=== PATIENT | female | born 1980 | race Caucasian/White ===

== ENCOUNTER 2018-03-30 07:47 | Emergency (ER) | payer OTHER, SELFPAY ==
[2018-03-30 08:00] VITALS: BP 126/97; PULSE 99; RESP 16; TEMP 37.2; O2SAT 100; BMI 31.5
--- NOTE | 2018-03-30 08:42 | ED.BACK ---
HPI - Back Pain/Injury General Chief Complaint: Back Pain/Injury Stated Complaint: back pain History of Present Illness HPI Narrative: HPI 37-year-old asthmatic [employer] presents for evaluation of gradual onset diffuse bilateral paraspinal lumbar spasming type muscle strain pain that began after lifting the patient. Patient reports that on the overnight shift preceding presentation she is hoping to transition the patient to a bed with the patient's legs buckled and she suddenly had increase amount of weight that she had a bear, she lifted heavily, afterwards she had a gradual onset worsening back pain. Remains ambulatory. Patient denies a history of recent trauma, fevers, chills, unexpected weight loss, decreased perineal sensation when toileting, difficulty urinating or incontinence, morning stiffness, IV drug use, recent invasive medical procedures, presyncope, abdominal pain, Marfan's disease, or dysuria. M/S/F/SocHx notable for: please see HPI; remainder reviewed with patient and in chart. ROS: Negative constitutional, eye, cardiovascular, pulmonary, GI, , MSK, skin, neurologic, psychiatric, endocrine unless noted in the HPI. Exam Gen: Pleasant, non-toxic appearing, resting comfortably. HEENT: NC, AT, PEERL, EOMI. Resp: CTAB Card: RRR GI: ND, non-tender to palpation, no palpable midline masses, no palpable midline pulsatility. : No CVA tenderness to percussion bilaterally. MSK: No visible deformities, strength and tone WNL. No lower thoracic or lumbar spinal TTP, step offs or deformities. Mild bilateral paraspinal lumbar TTP. Skin: Normal color with no visible lesions. Neuro: AO x 3, no facial asymmetry, vision and hearing WNL. Straight leg raise test - negative right, negative left. BLE distal sensation intact, 5/5 dorsiflexion / plantarflexion bilaterally. Psych: Mood and affect appropriate. MDM Previous chart, nursing note, and vitals reviewed. A: 37-year-old asthmatic [employer] presents for evaluation of gradual onset diffuse bilateral paraspinal lumbar spasming type muscle strain pain that began after lifting the patient. DDx: muscle strain, muscle spasm, sciatica, lumbar radiculopathy, cauda equina syndrome, spinal cord abscess, vertebral osteomyelitis, vertebral diskitis, fracture, seronegative spondyloarthropathy, abdominal aortic aneurysm. Evaluation: * Cauda equina - consider unlikely given normal perineal sensation, lack of incontinence or urinary retention. * Infection - abscess, vertebral osteomyelitis, and diskitis are unlikely as the patient is immunocompetent and is with an absence of infectious signs and risk factors on ROS, and a lack of point tenderness. * Fracture - doubt given the absence of spinal TTP and lack of prior trauma * Seronegative spondyloarthropathy - unlikely, no further evaluation currently indicated given the absence of morning stiffness and negative RA, psoriatic arthritis, and autoimmune disease history. * AAA or Dissection - given the lack of a palpable pulsatile abdominal mass, abdominal pain, presyncope, an abdominal aortic aneurysm as well as dissection is considered unlikely and further investigation is not currently indicated. CT abdomen / pelvis without evidence of AAA or dissection. * Spontaneous hematoma - given the patient's use of anticoagulation and/or antiplatelet agents, as well as today's presentation not repsenting a typical exacerbation of a long standing injury, a CT abdomen and pelvis with contrast was obtained, this was without evidence of hematoma, a spontaneous epidural hematoma was also considered, but given the lack of objective motor or sensory deficits, a MRI is not presently indicated, the need for prompt return to care should any neurological deficits occur was communicated verbally and in writing with the patient.[ * Consider a muscle strain to be the most likely cause of the patient's symptoms. Counseled patient regarding natural course of musculoskeletal back pain, given return to care instructions, and recommendation for primary care physician follow up. Discharged with instructions to use NSAIDs and follow up with her PCP. Impression: Back Pain. (please reference below for remainder of encounter information) Related Data Home Medications Medication Instructions Recorded Confirmed IBUPROFEN (#IBUPRIN) 200 mg PO PRN #0 05/21/11 Previous Rx's Medication Instructions Recorded FERROUS GLUCONATE (FE-40 (FERROUS 325 mg PO QDAY #30 11/28/11 GLUCONATE)) Allergies Allergy/AdvReac Type Severity Reaction Status Date / Time hydromorphone [HYDROMORPHONE] Allergy Unknown Unverified 12/18/17 12:12 diphenhydramine AdvReac Intermediate aggitation Unverified 12/18/17 12:12 [DIPHENHYDRAMINE] PFSH Surgical History Status post biopsy (03/24/14) Status post breast lumpectomy Family History Grandfather Heart disease Hypertension High cholesterol Lupus Grandmother Diabetes mellitus Heart disease Hypertension High cholesterol Stroke Grandfather Age: 98 Skin cancer Diabetes mellitus Heart disease Hypertension High cholesterol Grandmother Age: 93 Osteoporosis Dementia High cholesterol Heart disease Hypertension Mental health problem Alzheimer's dementia Social History Smoking Status: Current some day smoker Exam Initial Vital Signs Initial Vital Signs: Vital Signs Temperature 99.0 F 03/30/18 08:00 Pulse Rate 99 H 03/30/18 08:00 Respiratory Rate 16 03/30/18 08:00 Blood Pressure 126/97 H 03/30/18 08:00 Pulse Oximetry 100 03/30/18 08:00 Course Vital Signs - 8 hr 03/30/18 08:00 Temperature 99.0 F Pulse Rate 99 H Respiratory Rate 16 Blood Pressure 126/97 H Pulse Oximetry 100 Discharge Plan Departure Patient Disposition: Home, Self-Care Clinical Impression: Strain of lumbar region Activity Restrictions/Additional Instructions: You were in seen in the [facility] Emergency Department for evaluation of back pain. Please read and follow all of the instructions below. Please follow up with your primary care physician 2 days if you still have significant ongoing symptoms. If you have any new symptoms or if you are at all concerned about your health please return immediately to the emergency department. If you do not have a primary care physician, please contact [facility] [place], [facility] at [phone], [facility] at [phone], or [facility] at [phone] to arrange follow up care. If you have health insurance, please also contact your insurer for a list of accepting providers under your policy, you may contact these providers for further health care. Your care today was limited to identifying and treating emergent medical problems only. Many people have subtle differences in their test results that require follow up with their outpatient physician(s) to correctly determine if this represents a normal variation or concerning abnormality with respect to your specific health. The care given to you today was limited to identifying and treating emergent medical problems - you need to request a copy of all of your medical records from today's visit and follow up with your outpatient physician(s) to review both today's visit and your overall health. Back Pain You were evaluated today in the emergency department for your back pain. Your pain is believed to be caused by muscle stains and spasms. This type of pain can be very severe, but it is almost never serious. * You may take ibuprofen 600 mg every 8 hours as needed for pain. You may take acetaminophen 1000 mg every 8 hours in addition to the ibuprofen for further pain relief. Both of these medications provide very good reduction in pain with minimal side effects. Do not take this ibuprofen if you are or allergic to ibuprofen, Motrin, Aleve, or naproxen. Do not take acetaminophen if you are allergic to Tylenol or acetaminophen. If you have liver disease you may take up to 2000 mg of acetaminophen per day. * Call your primary care physician to schedule a follow up appointment. Many people have pain that lasts beyond the length of the medications prescribed in the emergency department. You may also benefit from physical therapy, lifestyle changes, and further evaluation. Please return to the emergency department if you develop any of the following: * Pain on your spine (on the bones) * Have numbness or weakness in your legs * Have problems with bowel or bladder control * Have decreased sensation in your groin or at your anus * Have unexplained weight loss * Have a fever or feel sick in other ways * If you have pain that is so severe that you cannot perform simple tasks * If you are otherwise concerned about your health Please follow up with your primary care physician if you still have pain after 4-5 days What causes low back pain? In most cases, doctors and nurses do not know what causes low back pain. Pain can happen if you strain a muscle or hurt a tendon or ligament. But if that is the cause of your pain, doctors and nurses have no way of knowing it for sure. Pain can also happen if you have: * Damaged, bulging, or torn discs * Arthritis affecting the joints of the spine * Bony growths on the vertebrae that crowd nearby nerves * A vertebra out of place * Narrowing in the spinal canal * A tumor or infection (but this is very rare) Should I get an imaging test, like an MRI? Most people do not need an imaging test. Most cases of back pain go away within 4 to 6 weeks or in even less time. Doctors and nurses usually do not order imaging tests before then unless there are signs of something unusual. * If your doctor or nurse does not order an imaging test, do not worry. He or she can still learn a lot about your pain just from looking you over and talking with you. Plus, treatment can start right away, even without an imaging test. * How can the doctor or nurse tell what is wrong just by talking to me? Your symptoms tell your doctor or nurse a lot about the cause of your pain. If your pain spreads down the back of one thigh, for instance, that could be a sign that one of the nerves that go to your leg is being pinched by a bulging or torn disc. If, on the other hand, your pain goes all the way down both legs, that could be a sign that you have bony growths on your spine. * What can I do to feel better? The best thing you can do is to stay as active as possible even if you are in pain. People with low back pain recover faster if they stay active. Walk as much as you can. If you stopped working because of your pain, try to get back to your normal routine soon. But do not overdo it. * When you start to feel better, ask your doctor or nurse about exercises that can help strengthen your back. These exercises can help you get better faster and might make it less likely that you will have pain again. How is back pain treated? A small number of people end up needing surgery to treat back pain. But most people do well with simpler treatments, such as: * Physical therapy to teach you special exercises and stretches * Injections of medicines that numb the back or reduce swelling * What can I do to keep from getting back pain again? Stay active, maintain a healthy body weight and learn exercises that help strengthen and stretch your back. Learn to lift using your legs instead of your back. And avoid sitting or standing in the same position for too long. You make take over the counter Acetaminophen (Tylenol) and Ibuprofen (Motrin or Aleve) as directed below for relief of pain. * Take 600 mg of ibuprofen (three 200 mg tablets) with a glass of water every 6-8 hours as needed for pain or fever. Do not take this ibuprofen if you are or allergic to ibuprofen, Motrin, Aleve, or naproxen. * Take 1,000 mg of acetaminophen (two 500 mg tablets) with a glass of water every 6-8 hours as needed for pain. Do not take acetaminophen if you are allergic to Tylenol or acetaminophen. If you have liver disease you may take up to 2000 mg of acetaminophen per day. * You can take these medications at the same time or on separate schedules. * Do not take for more than 10 days. * Do not take with alcohol or other acetaminophen containing medications. * This medication may cause a mildly upset stomach, if so take it with a small snack. Stop taking it if you have persistent abdominal pain, heartburn, or any stomach pain. Do not take this medication if you have known ulcers. * Please read the warnings at the end of this document regarding these medications. Ibuprofen (Brand Names: Motrin, Advil) * Take 600 mg with a glass of water every 6-8 hours as needed for pain or fever. * Do not take for more than 10 days. * This medication may cause a mildly upset stomach, if so take it with a small snack. Stop taking it if you have persistent abdominal pain, heartburn, or any stomach pain. Do not take this medication if you have known ulcers. * Do not take with Naproxen Sodium (brand name: Aleve) or other non-steroidal antiiflammatory medications that you may be prescribed (e.g. Diclofenac, Etodolac, Indomethicin) WARNING: This drug may infrequently cause serious (rarely fatal) bleeding from the stomach or intestines. Also, related drugs rarely have caused blood clots to form, resulting in heart attacks and strokes. This medication might also rarely cause similar problems. Talk to your doctor or pharmacist about the benefits and risks of treatment, as well as other possible medication choices. If you notice any of the following rare but very serious side effects, stop taking ibuprofen and seek immediate medical attention: black stools, persistent stomach/abdominal pain, vomit that looks like coffee grounds, chest pain, weakness on one side of the body, sudden vision changes, slurred speech. SIDE EFFECTS: Upset stomach, nausea, vomiting, heartburn, headache, diarrhea, constipation, drowsiness, and dizziness may occur. If any of these effects persist or worsen, notify your doctor or pharmacist promptly. If your doctor has directed you to use this medication, remember that he or she has judged that the benefit to you is greater than the risk of side effects. Many people using this medication do not have serious side effects. Tell your doctor immediately if any of these serious side effects occur: stomach pain, swelling of the hands or feet, sudden or unexplained weight gain, ringing in the ears (tinnitus). Tell your doctor immediately if any of these unlikely but serious side effects occur: vision changes, rapid or pounding heartbeat, easy bruising or bleeding, difficult/painful swallowing. Tell your doctor immediately if any of these highly unlikely but very serious side effects occur: change in amount of urine, severe headache, very stiff neck, mental/mood changes, persistent sore throat or fever. This drug may rarely cause serious (possibly fatal) liver disease. If you notice any of the following highly unlikely but very serious side effects, stop taking ibuprofen and consult your doctor or pharmacist immediately: yellowing eyes and skin, dark urine, unusual/extreme tiredness. An allergic reaction to this drug is unlikely, but seek immediate medical attention if it occurs. Symptoms of an allergic reaction include: rash, itching/swelling (especially of the face/tongue/throat), severe dizziness, trouble breathing. This is not a complete list of possible side effects. DRUG INTERACTIONS: Your healthcare professionals (e.g., doctor or pharmacist) may already be aware of any possible drug interactions and may be monitoring you for it. Do not start, stop or change the dosage of any medicine before checking with them first. This drug should not be used with the following medications because very serious interactions may occur: cidofovir, ketorolac. If you are currently using any of these medications listed above, tell your doctor or pharmacist before starting ibuprofen. Before using this medication, tell your doctor or pharmacist of all prescription and nonprescription/herbal products you may use, especially of: anti-platelet drugs (e.g., cilostazol, clopidogrel), oral bisphosphonates (e.g., alendronate), other medications for arthritis (e.g., aspirin, methotrexate), blood thinners (e.g., enoxaparin, heparin, warfarin), corticosteroids (e.g., prednisone), cyclosporine, desmopressin, high blood pressure drugs (including SAM inhibitors such as captopril, angiotensin II receptor antagonists such as losartan, and beta-blockers such as metoprolol), lithium, pemetrexed, water pills (diuretics such as furosemide, hydrochlorothiazide, triamterene). Check all prescription and nonprescription medicine labels carefully for other pain/fever drugs (NSAIDs such as aspirin, celecoxib, naproxen). These drugs are similar to ibuprofen, so taking one of these drugs while also taking ibuprofen may increase your risk of side effects. Consult your doctor or pharmacist for more details. However, if your doctor has prescribed low doses of aspirin to prevent heart attack or stroke (usually at dosages of 81-325 milligrams a day), you should continue to take the aspirin. Daily use of ibuprofen may decrease aspirin's ability to prevent heart attack/stroke. Talk to your doctor about using a different medication (e.g., acetaminophen) to treat pain/fever. If you must take ibuprofen, talk to your doctor about possibly taking immediate-release aspirin (not enteric-coated) while also taking the ibuprofen dose apart from your aspirin dose. Do not increase your daily dose of aspirin or change the way you take aspirin/other medications without your doctor's approval. This document does not contain all possible interactions. Therefore, before using this product, tell your doctor or pharmacist of all the products you use. Keep a list of all your medications with you, and share the list with your doctor and pharmacist. Acetaminophen (Tylenol) * Please take 1,000 mg every 6 hours as needed for pain. * Do no use with alcohol or other acetaminophen containing medications. SIDE EFFECTS: This drug usually has no side effects. If you do not have liver problems, the maximum dose of acetaminophen for adults is 4 grams per day (4000 milligrams). Taking more than the maximum daily amount may cause serious (possibly fatal) liver damage. Get medical help right away if you have any of the following symptoms of liver damage: persistent nausea/vomiting, extreme tiredness, stomach/abdominal pain, yellowing eyes/skin, dark urine. If you have liver problems, consult your doctor or pharmacist for a safe dosage of this medication. A very serious allergic reaction to this drug is rare. However, get medical help right away if you notice any symptoms of a serious allergic reaction, including: rash, itching/swelling (especially of the face/tongue/throat), severe dizziness, trouble breathing. This is not a complete list of possible side effects. If you notice other effects not listed above, contact your doctor or pharmacist. Prescriptions: No Action IBUPROFEN (#IBUPRIN) 200 mg PO PRN Qty: 0 RF: 0 FERROUS GLUCONATE (FE-40 (FERROUS GLUCONATE)) 325 mg PO QDAY Qty: 30 RF: 5
== END 2018-03-30 08:47 | disposition home or self-care (01) ==
PROVIDERS: Emergency Provider Emergency Medicine
DX: S39.012A Strain of muscle, fascia and tendon of lower back, initial encounter (principal); T73.3XXA Exhaustion due to excessive exertion, initial encounter; Y99.0 Civilian activity done for income or pay
CPT/HCPCS: 99282

== ENCOUNTER → 2018-04-10 08:03 | Outpatient (CLI) | payer OTHER, SELFPAY ==
[2018-04-10 09:50] LABS: Add Manual Diff / Slide Review NO; Basophils Percent Auto 0.9 % (0-2); Eosinophils Percent Auto 1.5 % (2-4); Hematocrit 32.3 % (36-46); Hemoglobin 10.3 g/dL (12.0-16.0); Lymphocytes Percent Auto 24.9 % (25-40); Mean Corpuscular HGB Conc 31.9 % (30-36); Mean Corpuscular Hemoglobin 23.1 PG (26-34); Mean Corpuscular Volume 72.5 fL (80-100); Monocytes Percent Auto 9.4 % (3-14); Neutrophils Absolute Auto 4000 /uL (3000-5900); Neutrophils Percent Auto 63.3 % (50-75); Platelet Count 410 X10^3/uL (150-400); Red Blood Cell Count 4.45 X10^6/uL (4.0-5.2); Red Cell Distribution Width 17.2 % (11.6-14.8); White Blood Cell Count 6.4 X10^3/uL (4.5-11.0)
[2018-04-10 09:59] LABS: Reticulocyte Count, Percent 1.8 % (1.06-2.63)
[2018-04-10 10:38] LABS: HEMOLYSIS < 15 (0-50); Iron 29 ug/dL (37-170)
[2018-04-10 10:51] LABS: Percent Iron Saturation 7 % (15-50); Total Iron Binding Capacity 399 ug/dL (265-497); Transferrin 319 mg/dL (206-381)
[2018-04-10 11:01] LABS: Ferritin 6.1 ng/mL (6.27-137)
== END ==
PROVIDERS: Visit Provider Family Medicine
DX: D50.9 Iron deficiency anemia, unspecified (principal)
CPT/HCPCS: 36415; 82728; 83540; 83550; 85025; 85045

== ENCOUNTER → 2018-05-02 08:18 | Outpatient (CLI) | payer OTHER, SELFPAY ==
--- NOTE | 2018-05-02 08:19 | DI.US.S_ITS ---
PROCEDURE: US PELVIC COMPLETE INDICATIONS: HEAVY MENSES TECHNIQUE: Real-time scanning was performed of the pelvic organs, with image documentation. Additional endovaginal scanning was necessary due to incomplete visualization of the adnexal and endometrial structures by transabdominal scanning. COMPARISON: None. FINDINGS: Transabdominal scanning: Limited scanning through the kidneys shows no hydronephrosis. No pathologic free abdominal or pelvic fluid. Endovaginal scanning: Uterus: Uterus is normal in size at 6.1 x 6.3 x 9.8 cm. The endometrium is poorly visualized due to to overlying uterine fibroid through the fundus and mid body region, presumably submucosal, measuring up to 2.0 x 2.1 x 3.2 cm. Ovaries: The right ovary measures 1.3 x 2.5 x 2.9 cm and is relatively poorly visualized by posterior positioning. The left ovary could not be located despite both transabdominal and transvaginal scanning. IMPRESSION: The masslike structure seen at the uterine fundus/body portion of the endometrial canal measuring up to 2.0 x 2.1 x 3.2 cm is presumably a submucosal fibroid which disallows clear visualization of the endometrial lining. Please note that this is a statistical diagnosis and given the clinical history provided very close clinical followup is recommended to determine whether advanced imaging (contrast-enhanced MR imaging of the pelvis) is warranted. An endometrial malignancy conceivably could produce this appearance. Dictated by: Seth Foss M.D. on 05/02/2018 at 10:13 Approved by: Seth Foss M.D. on 05/02/2018 at 10:16
== END ==
PROVIDERS: Visit Provider Family Medicine
DX: N92.0 Excessive and frequent menstruation with regular cycle (principal); D25.9 Leiomyoma of uterus, unspecified
CPT/HCPCS: 76830; 76856

== ENCOUNTER → 2018-05-29 10:00 | Oncology outpatient (ONC) | payer OTHER, SELFPAY ==
[2018-05-08] MEDS: IRON SUCROSE 200 MG in SODIUM CHLORIDE 0.9% 100 ML 220 ML IV (10:21)
[2018-05-08 10:25] VITALS: BP 125/84; PULSE 98; RESP 20; TEMP 36.9; O2SAT 97
[2018-05-15] MEDS: IRON SUCROSE 200 MG in SODIUM CHLORIDE 0.9% 100 ML 220 ML IV (10:51)
[2018-05-15 11:01] VITALS: BP 117/74; PULSE 88; RESP 16; TEMP 37; O2SAT 98
[2018-05-22 10:35] VITALS: BP 111/74; PULSE 83; RESP 18; TEMP 37; O2SAT 98
[2018-05-22] MEDS: IRON SUCROSE 200 MG in SODIUM CHLORIDE 0.9% 100 ML 220 ML IV (10:48)
[2018-05-22 11:22] LABS: Add Manual Diff / Slide Review NO; Basophils Percent Auto 1.6 % (0-2); Eosinophils Percent Auto 2.4 % (2-4); Hematocrit 30.2 % (36-46); Hemoglobin 9.9 g/dL (12.0-16.0); Mean Corpuscular HGB Conc 32.7 % (30-36); Mean Corpuscular Hemoglobin 23.7 PG (26-34); Mean Corpuscular Volume 72.6 fL (80-100); Monocytes Percent Auto 6.4 % (3-14); Neutrophils Absolute Auto 5100 /uL (3000-5900); Neutrophils Percent Auto 66.6 % (50-75); Platelet Count 346 X10^3/uL (150-400); Red Blood Cell Count 4.16 X10^6/uL (4.0-5.2); Red Cell Distribution Width 20.4 % (11.6-14.8); White Blood Cell Count 7.6 X10^3/uL (4.5-11.0)
[2018-05-22 14:08] LABS: RBC Morphology Normal Morphology
[2018-05-26 18:22] LABS: Clotting factor VIII 122 % normal (50-180); Thromboplastin Time 26 sec (22-34); Von Willibrand Factor Antigen 126 % (50-217)
[2018-05-29 10:30] VITALS: BP 115/76; PULSE 65; RESP 16; TEMP 36.7
[2018-05-29] MEDS: IRON SUCROSE 200 MG in SODIUM CHLORIDE 0.9% 100 ML 220 ML IV (10:48)
== END ==
PROVIDERS: Visit Provider Family Medicine
DX: D50.0 Iron deficiency anemia secondary to blood loss (chronic) (principal)
CPT/HCPCS: 85025; 85240; 85245; 85246; 85730; 96365; J1756

== ENCOUNTER → 2018-07-01 14:00 | Outpatient (CLI) | payer OTHER, SELFPAY | PROVIDERS: PCP Family Medicine | DX: Z23 Encounter for immunization (principal) | CPT/HCPCS: 90471; 90686 ==

== ENCOUNTER → 2018-07-04 08:49 | Outpatient (CLI) | payer OTHER, SELFPAY ==
[2018-07-04 10:13] LABS: Hematocrit 34.2 % (36-46); Hemoglobin 11.2 g/dL (12.0-16.0)
== END ==
PROVIDERS: PCP Family Medicine
DX: D50.0 Iron deficiency anemia secondary to blood loss (chronic) (principal)
CPT/HCPCS: 36415; 85014; 85018

== ENCOUNTER → 2018-08-11 10:59 | Outpatient (CLI) | payer OTHER, SELFPAY ==
[2018-08-11 11:31] LABS: Add Manual Diff / Slide Review NO; Basophils Percent Auto 0.8 % (0-2); Eosinophils Percent Auto 2.8 % (2-4); Hematocrit 36.3 % (36-46); Hemoglobin 11.8 g/dL (12.0-16.0); Lymphocytes Percent Auto 22.6 % (25-40); Mean Corpuscular HGB Conc 32.5 % (30-36); Mean Corpuscular Hemoglobin 24.5 PG (26-34); Mean Corpuscular Volume 75.4 fL (80-100); Monocytes Percent Auto 5.9 % (3-14); Neutrophils Absolute Auto 4700 /uL (3000-5900); Neutrophils Percent Auto 67.9 % (50-75); Platelet Count 363 X10^3/uL (150-400); Red Blood Cell Count 4.82 X10^6/uL (4.0-5.2); Red Cell Distribution Width 16.7 % (11.6-14.8); White Blood Cell Count 6.9 X10^3/uL (4.5-11.0)
[2018-08-11 11:46] LABS: Iron 34 ug/dL (37-170)
[2018-08-11 11:48] LABS: Cholesterol 157 mg/dL (140-199); HDL Cholesterol 37 mg/dL (40-60); LDL Cholesterol Calculated 87 mg/dL (<100); Triglycerides 164 mg/dL (35-150)
[2018-08-11 11:57] LABS: Percent Iron Saturation 9 % (15-50); Total Iron Binding Capacity 366 ug/dL (265-497); Transferrin 320 mg/dL (206-381)
[2018-08-11 12:07] LABS: Free T3, Triiodothyronine Free 3.25 pg/mL (2.77-5.27); Free T4, Direct Thyroxine 0.84 ng/dL (0.78-2.19); HEMOLYSIS < 15 (0-50)
[2018-08-11 12:21] LABS: Thyroid Stimulating Hormone 1.58 uIU/mL (0.47-4.68)
== END ==
PROVIDERS: PCP Family Medicine; Visit Provider Family Medicine
DX: D50.0 Iron deficiency anemia secondary to blood loss (chronic) (principal); R68.89 Other general symptoms and signs
CPT/HCPCS: 36415; 80061; 83540; 83550; 84439; 84443; 84481; 85025

== ENCOUNTER 2018-08-29 13:38 | Day surgery (SDC) | payer OTHER, SELFPAY ==
[2018-08-25 10:53] VITALS: BMI 33.0
[2018-08-29] VITALS (8 sets, daily range): BP systolic 123–148; BP diastolic 61–98; PULSE 71–122; RESP 9–19; TEMP 36–36.4; O2SAT 94–100; BMI 33.0
--- NOTE | 2018-08-29 | PATH_ITS ---
[facility] Accession Number: [id number] . 01 Material submitted: . ENDOMETRIAL CURRETTING AND POLYP . 02 Diagnosis: Endometrium, Biopsy: Secretory endometrium and a few fragments with occasional thick-walled vessels, most consistent with benign endometrial polyp. No evidence of neoplasia or hyperplasia. MRV/09/01/2018 . 02 Electronically signed: . Yaz Wang MD, Pathologist NPI- [id number] . 01 Gross description: . ENDOMETRIAL CURRETTING AND POLYP: Received in formalin are minute fragments of mucoid and hemorrhagic material measuring 4.5 x 2.5 x 0.5 cm in aggregate. Submitted in toto in 2 cassettes. /CKI /CKI . 02 Pathologist provided ICD-10: N92.0 . 02 CPT . 940932 Performed at: 01 [facility] [address] [id number] MD Obie Coppola MD Phone: [phone] Performed at: 02 [facility] [address] [address] [place], [place] [id number] MD Yaz Wang MD Phone: [phone]
[2018-08-29] MEDS: LACTATED RINGERS 1,000 ML 42 ML IV (14:13)
--- NOTE | 2018-08-29 14:21 | PM.PREOP ---
Pre-operative Note Interval Note Pre-op Check: Yes History & Physical Reviewed by Physician, Yes Exam Performed and Yes History & Physical exam performed today by Physician Changes: No
--- NOTE | 2018-08-29 14:50 | SUR.OPER ---
Lithotomy on padded OR bed, head on pillow, arms secured on padded arm boards at <90 degrees abduction. Legs secured in padded yellow fins stirrups.
--- NOTE | 2018-08-29 15:34 | PM.GYNOP.1 ---
Operative Date/Time/Diagnoses Date of procedure: 08/29/18 Time of procedure: 15:34 Pre-op diagnosis: Menorrhagia probable submucous fibroid Post-op diagnosis: same Procedure: Procedures Operation Date: 08/29/18 14:30 Actual Procedures Side Surgeon p Hysteroscopy D&C, myomectomy Tayo Ghotra MD Indications: Menorrhagia Endometrial mass Surgeon: Tayo Ghotra Anesthesia Type: General Operative Notes Findings: Submucous myoma Closure Type: not applicable Specimen(s): endometrial curettings Estimated blood loss (mL): 75 Blood products transfused: none Procedure in detail: The patient was placed supine upon the operating table and anesthetized. She was then placed in the dorsal lithotomy position examined under anesthesia. The patient had a virginal introitus and narrow vagina which made visualization difficult. There were no obvious masses. Patient was draped. Usual fashion. A speculum was needed to be set in place with poor visualization. The cervix was grasped with a toothed tenaculum. Uterine cavity was sounded 8 cm. Uterine cervix was dilated to a Hegar is a 11. The cannot be dilated past. The dilator was removed and hysteroscope placed. Initial visualization was difficult because of low pressure flow which turned out to be due to a kinking and the connecting tubing which was then corrected. Good visualization one could see a submucous myoma. Curettage revealed scant amount of tissue. Attempts at removal of the of myoma were fraught with limited mobility inside a very tight vagina. The ring forceps were used but could number grasped the leiomyoma. This was not a shave of all leiomyoma so electrocautery was not used. Further dilatation was not possible and the procedure was discontinued at this juncture. Complications: none Post-operative Condition: stable Disposition: PACU Plan for aftercare: Office Dr. Mendez two weeks
[2018-08-29] MEDS: fentaNYL 100 MCG/2 ML INJ 25 MCG IV ×2 (15:58→16:04)
[2018-08-29] MEDS: OXYCODONE/ACETAMINOPHEN 5/325 TABLET 1 TAB PO (16:15)
--- NOTE | 2018-08-29 16:51 | SUR.PHASEII ---
INSTRUCTIONS REVIEWED WITH PT AND HER SISTER WITH VERBALIZED UNDERSTANDING. PT TOLERATING PO FLUIDS AND CRACKERS,
== END 2018-08-29 16:55 | disposition home or self-care (01) ==
PROVIDERS: PCP Family Medicine
PROC: 0UDB8ZZ Extraction of Endometrium, Via Natural or Artificial Opening Endoscopic (ICD-10-PCS; CPT 58558; principal; 2018-08-29 14:30)
DX: D25.0 Submucous leiomyoma of uterus (principal); G47.33 Obstructive sleep apnea (adult) (pediatric)
CPT/HCPCS: 58558; J1100; J2250; J2405; J2704; J3010

== ENCOUNTER 2018-09-30 14:26 | Observation (INO) | payer OTHER, SELFPAY ==
[2018-09-22 13:28] VITALS: BMI 32.8
[2018-09-29] VITALS (16 sets, daily range): BP systolic 116–154; BP diastolic 66–87; PULSE 79–115; RESP 10–20; TEMP 36.3–36.8; O2SAT 95–100; BMI 32.8
--- NOTE | 2018-09-29 | PATH_ITS ---
[facility] Accession Number: [id number] . 01 Material submitted: . UTERUS . 02 Diagnosis: Uterus, Laparoscopic supracervical Hysterectomy (Morcellated Specimen Weighing 146 grams): Secretory endometrium; negative for glandular hyperplasia, cytologic atypia and malignancy. Myometrium with an intramural leiomyoma (1.5 cm in greatest dimension). MRV/10/01/2018 . 02 Electronically signed: . Анна Crockett MD, Pathologist NPI- [id number] . 01 Gross description: . Received in formalin, labeled uterus, is a morcellated uterus (146 grams, 12.5 x 11.5 x 4.7 cm in aggregate). The cervix, ovaries, and fallopian tubes are absent. The tissue cannot be oriented, and the endometrium and myometrium cannot be grossly measured. The parenchyma is ramos and contains a solid firm white whorled well-circumscribed homogenous nodule (1.5 x 1.4 x 1.4 cm). The serosa is pale ramos smooth and shiny. Glue Sprayer tissue is submitted in cassettes A1-A4. ([id number]) /[facility] . 02 Pathologist provided ICD-10: N85.00 . 02 CPT . 452962 Performed at: 01 [facility] [address], [place], [place] [id number] MD Obie Coppola MD Phone: [phone] Performed at: 02 [facility] [address] [place], [place] [id number] MD Yaz Wang MD Phone: [phone]
[2018-09-29] MEDS: LACTATED RINGERS 1,000 ML 42 ML IV (08:12)
--- NOTE | 2018-09-29 08:57 | PM.PREOP ---
Pre-operative Note Interval Note History & Physical reviewed/Exam performed by Physician: Yes Changes to H&P: No H&P completed within 30 days and has changed as indicated here:: See outpatient note from 09/10/2018
[2018-09-29] MEDS: CEFAZOLIN 2 GM/100 ML FROZ.PIGGY IV (09:22)
--- NOTE | 2018-09-29 09:58 | SUR.OPER ---
Lithotomy on padded OR bed. Haring Pad Positioner under torso. Head on pillow, arms padded and tucked at sides. Legs secured in padded yellow fins stirrups.
[2018-09-29] MEDS: BUPIVACAINE 0.5% W/ EPI (PF) VIAL 30 ML INJ (10:09)
--- NOTE | 2018-09-29 11:01 | P.OP_ITS ---
Operative Date/Time/Diagnoses Date of procedure: 09/29/18 Time of procedure: 10:57 Pre-op diagnosis: Menorrhagia Post-op diagnosis: same Procedure & Clinicians Procedure: Laparoscopic supracervical hysterectomy Same procedure as scheduled: Yes Indications: Menorrhagia Surgeon: Doreen Urbina Build And Release Manager: Tayo Marion Yes if Unassisted: No Anesthesia Type: General Operative Notes Findings: Mildly enlarged uterus with normal fallopian tubes and ovaries Closure Type: primary Specimen(s): other (Uterus above the level of the bladder) Applied: catheter Estimated Blood Loss (mL): 50 Blood products transfused: none Procedure in detail: Patient is brought to the operating room where she underwent general anesthesia and placed in [facility]. She was prepped and draped in the usual sterile fashion. A check list was reviewed with the staff in the room prior to beginning of the case. Patient had pulsatile stockings in place and functional. 2 g of Ancef were in prior to beginning of the case.. A Tamayo catheter was placed. A single-tooth tenaculum was placed on the anterior lip of the cervix and the cervix dilated to a #6 Hegar dilator. The uterine manipulator was placed through the cervix into the uterus with the balloon inflated with 3 mL of air. The area of the umbilical incision and the 5 mm right and left lower quadrant incisions were injected with Marcaine. An incision was made with scalpel. The verries needle was placed into the abdomen and confirmed in the appropriate place with withdrawal on a syringe and then free flow of fluid down through the needle. The abdomen was insufflated with CO2. The needle was removed and a 5 mm trocar placed without difficulty. There did not appear to be any damage is placement of the trocar. The right and left lower quadrant incisions were made with the scalpel and the trochars placed without damage to internal structures. The PK forceps were used to cauterize the round ligaments. Sequential bites were taken down the broad ligaments. The uterine arteries were cauterized. An incision was made above the level bladder pushing the bladder away from the cervix. The ROJELIO loop was placed around the uterus and the uterus was amputated above the level of the bladder. Bleeding was controlled with the PK forceps. The PK forceps were used to cauterize in the endocervical canal. A supracervical incision was made and an 11 mm port placed. A 15 mm Endo Catch bag was placed in the abdomen. The uterus, tubes and ovaries were placed in the bag and brought up through the suprapubic port site. The Diaz O was placed. The uterus was hand morselized. The abdomen was reinsufflated and adequate hemostasis was noted. The trochars were removed and the CO2 allowed escape from the abdomen. The fascia layer of the suprapubic site was repaired with 0 Polysorb suture. Skin was closed with 4-0 Monocryl suture at the suprapubic site and the other 3 sites. The patient went to recovery room in good condition. Counts of instruments and sponges were correct. Complications: none Condition: stable Disposition: Acute Care Plan for aftercare: Routine post laparoscopic supracervical hysterectomy
[2018-09-29] MEDS: LACTATED RINGERS 1,000 ML 100 ML IV ×2 (11:16→12:19)
[2018-09-29] MEDS: fentaNYL 100 MCG/2 ML INJ 50 MCG IV ×2 (11:20→11:29)
[2018-09-29] MEDS: LORazepam 2 MG/ML SYRINGE 0.5 MG IV (11:23)
[2018-09-29] MEDS: ONDANSETRON 4 MG/2 ML INJ IV ×2 (12:42→19:08)
[2018-09-29] MEDS: KETOROLAC 30 MG/ML VIAL IV ×2 (12:43→22:40)
[2018-09-29] MEDS: MORPHINE 2 MG/ML INJ IV (13:37)
--- NOTE | 2018-09-29 16:07 | PC.NURSE ---
Post-op: Late entry Arrived to room 229 at 1320. Alert and oriented X3. 4 abd lap dressings dry/intact, all clean except for L lateral which has small spot sanguinous drainage. No vaginal bleeding noted. Medicated with PRN Zofran, Toradol and Morphine. Had one episode of emesis (300 ml) shortly after arrival, none since then and no further complaints of nausea. BT+, hypoactive. Tamayo to gravity, urine cloudy and yellow. Lungs CTA, sats on RA 99-100%. HARNESS TIER reported hearing a heart murmur, and I thought I heard one when I did my initial assessment. Patient was surprised when this was mentioned and denied Hx of murmur. This writer technical publications listened a second time about an hour later and heart rate sounded regular with no murmur. IV fluids per order, site in R hand WNL. Oriented to room and call light. She agrees not to get up without calling.
[2018-09-29] MEDS: OXYCODONE/ACETAMINOPHEN 5/325 TABLET 2 TAB PO (16:23)
[2018-09-29] MEDS: MORPHINE 4 MG/ML INJ IV (19:08)
[2018-09-29] MEDS: LORazepam 2 MG/ML SYRINGE 1 MG IV (19:46)
[2018-09-29] MEDS: DOCUSATE 250 MG CAPSULE PO (22:39)
--- NOTE | 2018-09-30 04:15 | PC.NURSE ---
Addendum entered by Sindi Zamudio R.N. 09/30/18 06:18: 1 TAB PERCOCET GIVEN AT APPROX 0450. AFTER 45 MIN PAIN PERSISTS WITH MILD NAUSEA; 2ND TAB PERCOCET GIVEN WITH ZOFRAN. PT REPORTS DISCOMFORT WHEN CROSSING LEGS. REPORTS SPLINTING ABD HELPS WITH PAIN. Original Note: ASSUMED CARE OF PT AT 2300. IV ACCESS LOST PRIOR TO THIS YARD DEMURRAGE CLERK'S SHIFT. DEVENDRA CASIANO RN OBTAINED NEW PIV IN L. WRIST. FLUSHES WELL. LAP SITES WITH BAND-AIDS C/D/I. REPORTS TORADOL HAS BEEN EFFECTIVE. NO FURTHER MEDICATIONS GIVEN THIS SHIFT. C-PAP SET-UP BY Steve. AMBULATING IN HALLS AND ROOM. VOIDING IN BATHROOM. CALLING APPROPRIATELY FOR NEEDS.
[2018-09-30 04:25] VITALS: BP 126/65; PULSE 95; RESP 16; TEMP 36.4; O2SAT 99
[2018-09-30] MEDS: OXYCODONE/ACETAMINOPHEN 5/325 TABLET 2 TAB PO ×4 (04:53→15:46)
[2018-09-30 06:00] LABS: Add Manual Diff / Slide Review NO; Basophils Absolute Auto 0 /uL (0-100); Basophils Percent Auto 0.2 % (0-2); Eosinophils Absolute Auto 0 /uL (0-450); Eosinophils Percent Auto 0.1 % (2-4); Hematocrit 32.3 % (36-46); Hemoglobin 10.6 g/dL (12.0-16.0); Lymphocytes Absolute Auto 1700 /uL (1100-4500); Lymphocytes Percent Auto 19.7 % (25-40); Mean Corpuscular HGB Conc 32.8 % (30-36); Mean Corpuscular Hemoglobin 23.6 PG (26-34); Mean Corpuscular Volume 72.1 fL (80-100); Monocytes Absolute Auto 700 /uL (0-900); Monocytes Percent Auto 7.5 % (3-14); Neutrophils Absolute Auto 6400 /uL (1500-7000); Neutrophils Percent Auto 72.5 % (50-75); Platelet Count 317 X10^3/uL (150-400); Red Blood Cell Count 4.48 X10^6/uL (4.0-5.2); Red Cell Distribution Width 16.3 % (11.6-14.8); White Blood Cell Count 8.8 X10^3/uL (4.5-11.0)
[2018-09-30] MEDS: ONDANSETRON 4 MG/2 ML INJ IV ×2 (06:05→15:45)
[2018-09-30 08:00] VITALS: BP 122/64; PULSE 78; RESP 18; TEMP 36.6; O2SAT 98
[2018-09-30 08:40] VITALS: O2SAT 99
[2018-09-30] MEDS: DOCUSATE 250 MG CAPSULE PO (09:41)
[2018-09-30] MEDS: LORazepam 2 MG/ML SYRINGE 1 MG IV (09:50)
[2018-09-30] MEDS: KETOROLAC 30 MG/ML VIAL IV (12:12)
[2018-09-30] MEDS: METOCLOPRAMIDE 10 MG/2 ML INJ IV (12:13)
--- NOTE | 2018-09-30 14:59 | PM.DS.1 ---
History of Present Illness Date Patient Seen: 09/30/18 Time Patient Seen: 15:00 Chief complaint: [id number] [facility] *OPB* Narrative: Patient underwent a laparoscopic supracervical hysterectomy on 09/29/2018 for menorrhagia. Discharge Providers Date of admission: 09/30/18 14:26 Primary care physician: Lata Menezes DO Consults: 09/22/18 13:38 Consult to Respiratory Therapy Evaluate & Treat Comment: LINSEY w/intermittant CPAP use Physician Instructions: Evaluate and treat 09/29/18 08:23 Consult to Respiratory Therapy Evaluate & Treat Comment: Physician Instructions: Evaluate and treat Discharge provider: Doreen Urbina MD Discharge Date: 09/30/18 Summary Discharge Diagnosis: Menorrhagia status post laparoscopic supracervical hysterectomy Hospital Course: After laparoscopic supracervical hysterectomy the patient had problems with emesis. She eventually began passing gas and was able to keep food and oral medications down. She is ambulatory without difficulty. Her pain is under control. Her vital signs remained stable. Status at Discharge Functional status at discharge: independent ambulation Overall status at discharge: patient is progressing back to baseline Time Spent with Patient Less than 30 minutes Exam Vital Signs (past 8 hours): - 09/30/18 08:00 09/30/18 08:40 Temperature 97.8 F Pulse Rate 78 Respiratory Rate 18 Blood Pressure 122/64 Pulse Oximetry 98 99 Oxygen Delivery Method Room Air Oxygen Flow Rate 0 Narrative Exam Narrative: Patient's abdomen is soft with minimal distention. There is mild tenderness. Her dressings are dry. Extremities without edema and nontender. Objective Labs Result Diagrams: 09/30/18 05:23 Labs: Laboratory Results - last 24 hr 09/30/18 05:23 WBC 8.8 RBC 4.48 Hgb 10.6 L Hct 32.3 L MCV 72.1 L MCH 23.6 L MCHC 32.8 RDW 16.3 H Plt Count 317 Neut % (Auto) 72.5 Lymph % (Auto) 19.7 L Evangeline % (Auto) 7.5 Eos % (Auto) 0.1 L Baso % (Auto) 0.2 Neut # (Auto) 6400 Lymph # (Auto) 1700 Evangeline # (Auto) 700 Eos # (Auto) 0 Baso # (Auto) 0 Discharge Plan Discharge Plan Patient Disposition: Home Discharge Med Rec/Prescriptions Prescriptions: New metoclopramide HCl 10 mg Tablet 10 mg PO Q4HR PRN (Reason: Nausea And Vomiting) Qty: 20 RF: 1 Continue IBUPROFEN (#IBUPRIN) 200 mg PO PRN Qty: 0 RF: 0 albuterol sulfate 90 mcg/actuation aerosol powdr breath activated 1 puff INHALATION Q4-6H PRN (Reason: Bronchospasm) RF: 0 alprazolam 0.25 mg tablet 0.25 mg PO .COMPLEX Qty: 2 RF: 0 oxycodone-acetaminophen 5-325 mg tablet 2 tab PO Q4-6H PRN (Reason: pain) Qty: 30 RF: 0 Discontinued ondansetron HCl 4 mg tablet 4 mg PO Q6-8H PRN (Reason: nausea and vomiting) Qty: 10 RF: 0 drospirenone-ethinyl estradiol 3-0.03 mg Tablet 1 tab PO DAILY RF: 0 ferrous gluconate 324 mg (38 mg iron) Tablet 324 mg PO DAILY RF: 0 No Action ResMed Airsense 10 Auto CPAP Qty: 1 RF: 0 Follow up/Referrals: Doreen Urbina MD [Physician] - 10/08/18 11:45 am Lata Menezes DO [Primary Care Provider] - Provider Discharge Instructions Diet: Diet as Tolerated Activity: No lifting over 20 lb for 1 week Skin/Wound/Dressing Care Report to your healthcare provider any signs of infection, such as:: chills, fever, increased pain and unusual redness Dressing: May remove Band-Aids. Can get Steri-Strips wet and pat dry. Remove in 1 week Discharge Data Primary Care Provider: Lata Menezes Attending Provider: Doreen Urbina Admit Date/Time: 09/30/18 14:26 Quality VTE Deep Vein Thrombosis/Pulmonary Embolism Present on Admission: No
--- NOTE | 2018-09-30 16:55 | PC.NURSE ---
1500- assumed care of pt. pt has pending discharge. medicated with pain meds per request/reports of pain. discussed discharge instructions with pt's father. IV removed. questions answered. taken down in wheel chair with ROLLWAY WORKER.
== END 2018-09-30 16:55 | disposition home or self-care (01) ==
LOC: OR 14:35
PROVIDERS: Admitting Provider Specialist; PCP Family Medicine; Visit Provider Specialist
PROC: 0UT94ZL Resection of Uterus, Supracervical, Percutaneous Endoscopic Approach (ICD-10-PCS; CPT 58541; principal; 2018-09-29 09:15)
DX: N85.00 Endometrial hyperplasia, unspecified (principal); N92.0 Excessive and frequent menstruation with regular cycle; D50.0 Iron deficiency anemia secondary to blood loss (chronic); F32.9 Major depressive disorder, single episode, unspecified; G47.30 Sleep apnea, unspecified; D25.1 Intramural leiomyoma of uterus
CPT/HCPCS: 58541; 36415; 85025; G0378; J0690; J1885; J2060; J2250; J2270; J2405; J2765; J3010

== ENCOUNTER → 2019-06-09 10:33 | Outpatient (CLI) | payer OTHER, SELFPAY ==
[2018-09-29 13:42] VITALS: BMI 32.8
== END ==
PROVIDERS: PCP Family Medicine
DX: Z23 Encounter for immunization (principal)
CPT/HCPCS: 90471; 90686

== ENCOUNTER → 2020-06-09 | Outpatient (CLI) | payer OTHER, SELFPAY ==
[2018-09-29 13:42] VITALS: BMI 32.8
== END ==
PROVIDERS: PCP Family Medicine; Referring Provider Internal Medicine; Visit Provider Internal Medicine
DX: Z23 Encounter for immunization (principal)
CPT/HCPCS: 90471; 90686

== ENCOUNTER → 2020-09-16 07:41 | Outpatient (CLI) | payer OTHER, SELFPAY ==
[2018-09-29 13:42] VITALS: BMI 32.8
[2020-09-16] MEDS: COVID-19 VACC(MODERNA-1)/PF 100 MCG/0.5 ML VIAL IM (07:51)
== END ==
PROVIDERS: PCP Family Medicine; Visit Provider Internal Medicine
DX: Z23 Encounter for immunization (principal)
CPT/HCPCS: 0011A; 91301

== ENCOUNTER → 2020-10-13 07:34 | Outpatient (CLI) | payer OTHER, SELFPAY ==
[2018-09-29 13:42] VITALS: BMI 32.8
[2020-10-13] MEDS: COVID-19 VACC #2, MRNA(MOD) 100 MCG/0.5 ML VIAL IM (07:38)
== END ==
PROVIDERS: PCP Family Medicine; Visit Provider Internal Medicine
DX: Z23 Encounter for immunization (principal)
CPT/HCPCS: 0012A; 91301

== ENCOUNTER → 2021-02-01 22:29 | Outpatient (CLI) | payer OTHER, SELFPAY ==
[2018-09-29 13:42] VITALS: BMI 32.8
[2021-02-01 23:31] LABS: Add Manual Diff / Slide Review NO; Basophils Absolute Auto 0 /uL (0-100); Basophils Percent Auto 0.6 % (0-2); Eosinophils Absolute Auto 100 /uL (0-450); Eosinophils Percent Auto 1.7 % (2-4); Hematocrit 42.3 % (36-46); Hemoglobin 14.4 g/dL (12.0-16.0); Lymphocytes Absolute Auto 2300 /uL (1100-4500); Lymphocytes Percent Auto 30.1 % (25-40); Mean Corpuscular Hemoglobin 29.3 PG (26-34); Mean Corpuscular Volume 86.1 fL (80-100); Monocytes Absolute Auto 500 /uL (0-900); Monocytes Percent Auto 6.9 % (3-14); Neutrophils Absolute Auto 4700 /uL (1500-7000); Neutrophils Percent Auto 60.7 % (50-75); Platelet Count 301 X10^3/uL (150-400); Red Blood Cell Count 4.91 X10^6/uL (4.0-5.2); Red Cell Distribution Width 14.3 % (11.6-14.8); White Blood Cell Count 7.7 X10^3/uL (4.5-11.0)
[2021-02-01 23:32] LABS: Alanine Aminotransferase 18 IU/L (<35); Albumin Globulin Ratio 1.4 (1.0-2.8); Alkaline Phosphatase 75 U/L (38-126); Aspartate Aminotransferase 26 IU/L (14-36); BUN Creatinine Ratio 27.9 (6-22); Bilirubin Total 0.8 mg/dL (0.2-1.3); Blood Urea Nitrogen 17 mg/dL (7-17); Calcium 9.4 mg/dL (8.4-10.2); Carbon Dioxide 29 mmol/L (22-32); Chloride 103 mmol/L (98-107); Cholesterol 143 mg/dL (140-199); Estimated Glomerular Filt Rate > 60.0 mL/min (>60); Globulin 2.9 g/dL (1.7-4.1); Glucose 97 mg/dL (70-100); HDL Cholesterol 35 mg/dL (40-60); HEMOLYSIS < 15 (0-50); LDL Cholesterol Calculated 85 mg/dL (<100); Sodium 138 mmol/L (137-145); Total Protein 6.9 g/dL (6.3-8.2); Triglycerides 115 mg/dL (35-150)
[2021-02-02 00:25] LABS: TSH w/ Reflex to FT4 2.47 uIU/mL (0.47-4.68)
== END ==
PROVIDERS: PCP Family Medicine; Referring Provider Family Medicine; Visit Provider Family Medicine
DX: Z00.00 Encounter for general adult medical examination without abnormal findings (principal); D50.0 Iron deficiency anemia secondary to blood loss (chronic)
CPT/HCPCS: 36415; 80053; 80061; 84443; 85025

== ENCOUNTER → 2021-03-13 09:08 | Outpatient (CLI) | payer OTHER, SELFPAY ==
[2018-09-29 13:42] VITALS: BMI 32.8
--- NOTE | 2021-03-13 09:09 | DI.RAD.S_ITS ---
PROCEDURE: XR FOOT RT MIN 3V INDICATIONS: RIGHT FOOT PAIN TECHNIQUE: 3 views of the foot were acquired. COMPARISON: None. FINDINGS: Bones: No fractures or dislocations. No suspicious bony lesions. Soft tissues: No tibiotalar joint effusion. Achilles tendon appears normal. IMPRESSION: Source of pain at the right foot is not found. Dictated by: Seth Foss M.D. on 03/13/2021 at 9:41 Approved by: Seth Foss M.D. on 03/13/2021 at 9:41
== END ==
PROVIDERS: PCP Family Medicine; Referring Provider Physician Assistant; Visit Provider Physician Assistant
DX: M79.671 Pain in right foot (principal)
CPT/HCPCS: 73630

== ENCOUNTER → 2021-07-06 13:33 | Outpatient (CLI) | payer OTHER, SELFPAY ==
[2018-09-29 13:42] VITALS: BMI 32.8
== END ==
PROVIDERS: PCP Family Medicine; Referring Provider Internal Medicine; Visit Provider Internal Medicine
DX: Z23 Encounter for immunization (principal)
CPT/HCPCS: 90471; 90686

== ENCOUNTER → 2021-08-15 07:13 | Outpatient (CLI) | payer OTHER, SELFPAY ==
[2018-09-29 13:42] VITALS: BMI 32.8
[2021-08-15 07:47] LABS: COVID19 -Nasal RAPID Negative (Negative)
== END ==
PROVIDERS: PCP Family Medicine; Referring Provider Nurse Practitioner Family; Visit Provider Nurse Practitioner Family
DX: Z20.822 Contact with and (suspected) exposure to COVID-19 (principal)
CPT/HCPCS: 87635

== ENCOUNTER 2021-09-11 01:26 | Emergency (ER) | payer OTHER, SELFPAY ==
[2018-09-29 13:42] VITALS: BMI 32.8
[2021-09-11 01:29] VITALS: BP 129/89; PULSE 132; RESP 22; TEMP 37.4; O2SAT 97; BMI 37.3
--- NOTE | 2021-09-11 01:33 | ED.FEVER ---
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 She was vaccinated for COVID in October. She has not had her booster yet. She has developed fever, vomiting, headache, nasal congestion and myalgias in the last 8 hours. No chest pain, shortness of breath. Patient has been nauseated had vomiting. Does have diarrhea intermittently but not persistently. No black or bloody stools. No urinary symptoms or dysuria urgency or frequency. She states that her myalgias red more in her hips. Has had a positive COVID exposures with close family recently. She does have a history of asthma and uses albuterol and takes amitriptyline as her only medications. She has had hysterectomy. No other major surgeries. No tobacco. She does not feel tight or wheezy or that she needs a albuterol treatment. Occasional alcohol. No illicit. Patient does note that she tends to be tachycardic typically 100-120 is her normal range. Related Data Home Medications Medication Instructions Recorded Confirmed IBUPROFEN (#IBUPRIN) 200 mg PO PRN #0 05/21/11 03/24/21 albuterol sulfate 90 mcg/actuation 1 puff INHALATION Q4-6H PRN 04/11/18 03/24/21 breath activated powder inhaler ResMed Airsense 10 Auto CPAP #1 ea 09/29/18 03/24/21 omeprazole 20 mg capsule,delayed 20 mg PO DAILY 03/24/21 03/24/21 release Previous Rx's Medication Instructions Recorded amitriptyline 25 mg tablet 50 mg PO HS #180 tab 11/28/12 benzonatate 100 mg capsule 100 mg PO BID PRN #20 cap 08/15/21 ondansetron 4 mg disintegrating 4 mg PO Q6H PRN #10 tab 09/11/21 tablet Allergies Allergy/AdvReac Type Severity Reaction Status Date / Time hydromorphone [HYDROMORPHONE] Allergy Severe itching Verified 03/13/21 08:59 diphenhydramine AdvReac Intermediate aggitation Verified 03/13/21 08:59 [DIPHENHYDRAMINE] amoxicillin AdvReac Verified 03/13/21 08:59 Review of Systems Review of Systems ROS Unobtainable: All systems reviewed & are unremarkable except as noted in HPI and below Patient History Medical History ADHD Anemia (~1997) Ankle pain (2012) Asthma (2013) Chicken pox (1985) Depression Deviated septum Foot pain (10/2014) Gallstones (~2012) Hayfever History of heavy periods (1993) Hyperlipidemia (2012) Iron deficiency anemia due to chronic blood loss Menorrhagia with irregular cycle Migraines (2011) Obesity (BMI 30-39.9) Obstructive sleep apnea Pancreatitis (2012) Severe ankle sprain (2012) Sleep apnea with use of continuous positive airway pressure (CPAP) Submucous uterine fibroid Submucous uterine fibroid Wears glasses (2012) Surgical History Anesthesia S/P laparoscopic supracervical hysterectomy (09/29/18) Status post biopsy (03/24/14) Status post breast lumpectomy (1996) Family History Grandfather Heart disease Hypertension High cholesterol Lupus Heart attack Grandmother Diabetes mellitus Heart disease Hypertension High cholesterol Stroke COPD (chronic obstructive pulmonary disease) Emphysema of lung Grandfather Age: 101 Skin cancer Diabetes mellitus Heart disease Hypertension High cholesterol Cancer of blood vessel History of heart artery stent Stroke Grandmother Age: 96 Osteoporosis Dementia High cholesterol Heart disease Hypertension Mental health problem Alzheimer's dementia Father Detached retina Partial blindness Forgetfulness Ache in joint Mother Partial deafness Asthma COPD (chronic obstructive pulmonary disease) Ache in joint Sister Foot fracture Wears glasses Social History household members: none Smoking Status: Current some day smoker alcohol intake: current Smoking Status: Current some day smoker alcohol intake frequency: a few times a week Substance Use Type: does not use Exam Narrative Exam Narrative: GEN: female, alert and oriented x 3, patient appears to be in mild distress. HEENT: Atraumatic, pupils are equal round reactive to light, extraocular movements are intact, nares are clear. HEART: Tachycardic but Regular rate and rhythm without murmur, clicks, rubs. No JVD. LUNGS:Lungs clear to auscultation, no wheezes, rales, crackles, chest moves symmetrically, no tachypnea accessory muscle use. Speaks in full sentences. ABD:bowel sounds normal, soft, non-tender, no guarding, rebound, rigidity, no masses noted, no hepatosplenomegaly :No CVA tenderness MSCL: Non-tender, no muscle atrophy, muscles strength 5/5 upper and lower extremities, full range of motion, normal gait NEURO:CN 2-12 intact, sensation normal SKIN: No rash, erythema or other skin changes. Initial Vital Signs Initial Vital Signs: Vital Signs Temperature 99.4 F 09/11/21 01:29 Pulse Rate 132 H 09/11/21 01:29 Respiratory Rate 22 09/11/21 01:29 Blood Pressure 129/89 09/11/21 01:29 Pulse Oximetry 97 09/11/21 01:29 Course Orders Ordered: ED Orders 09/11/21 01:35 COVID19 -Nasal swab/Pre-Proc Stat 09/11/21 01:55 Complete Blood Count AUTO DIFF Stat Comprehensive Metabolic Panel Stat Lipase Stat NT-proBNP (BNP-Adult 18+) Stat Procalcitonin Stat Troponin & CK Cardiac Panel Stat 09/11/21 01:59 XR chest 1V Stat 09/11/21 02:29 EKG-12 Lead Stat Discontinued Medications Sodium Chloride (Normal Saline 0.9%) 1,000 mls @ 1,000 mls/hr IV BOLUS ONE Stop: 09/11/21 02:57 Last Infusion: 09/11/21 04:01 Dose: 0 mls/hr Documented by: Admin: 09/11/21 02:09 Dose: 1,000 mls/hr Documented by: SHAWN Ketorolac Tromethamine (Ketorolac 30 Mg/Ml Vial) 30 mg IV NOW ONE Stop: 09/11/21 01:59 Last Admin: 09/11/21 02:10 Dose: 30 mg Documented by: SHAWN Ondansetron HCl (Ondansetron 4 Mg/2 Ml Inj) 4 mg IV NOW ONE Stop: 09/11/21 01:59 Last Admin: 09/11/21 02:10 Dose: 4 mg Documented by: SHAWN Ondansetron HCl (Ondansetron 4 Mg/2 Ml Inj) 4 mg IV NOW ONE Stop: 09/11/21 03:39 Ondansetron HCl (Ondansetron 4 Mg Odt Prepack) 1 bottle MISC SEEEARLINETR ONE Stop: 09/11/21 03:57 Last Admin: 09/11/21 04:01 Dose: 1 bottle Documented by: SHAWN Reevaluation(s) Reevaluation #1: Reviewed patient's, findings and vital signs today. Patient feeling somewhat better after Toradol and Zofran. She has not had any additional emesis. Patient is COVID positive. Does have some risk factors and offered order for monoclonal antibodies although we discussed this is and emergency authorize medication and may not be available. It is a 1 time outpatient infusion. Patient is amenable to possibly having monoclonal antibodies and order was sent. Vital Signs Vital signs: Vital Signs - 8 hr 09/11/21 01:29 09/11/21 02:21 09/11/21 02:30 Temperature 99.4 F Pulse Rate 132 H 127 H 126 H Respiratory Rate 22 Blood Pressure 129/89 Pulse Oximetry 97 95 93 09/11/21 03:00 Temperature Pulse Rate 114 H Respiratory Rate Blood Pressure Pulse Oximetry 93 MDM - Fever Lab Data Result diagrams: 09/11/21 01:55 09/11/21 01:55 Labs: Lab Results 09/11/21 09/11/21 09/11/21 Range/Units 01:35 01:55 01:55 WBC 4.6 (4.5-11.0) X10^3/uL RBC 4.66 (4.0-5.2) X10^6/uL Hgb 13.7 (12.0-16.0) g/dL Hct 39.5 (36-46) % MCV 84.7 (80-100) fL MCH 29.4 (26-34) PG MCHC 34.7 (30-36) % RDW 14.3 (11.6-14.8) % Plt Count 247 (150-400) X10^3/uL Neut % (Auto) 82.2 H (50-75) % Lymph % (Auto) 5.1 L (25-40) % Beckham % (Auto) 11.9 (3-14) % Eos % (Auto) 0.3 L (2-4) % Baso % (Auto) 0.5 (0-2) % Neut # (Auto) 3800 (4328-6670) /uL Lymph # (Auto) 200 L (0862-0581) /uL Beckham # (Auto) 500 (0-900) /uL Eos # (Auto) 0 (0-450) /uL Baso # (Auto) 0 (0-100) /uL Sodium (137-145) mmol/L Potassium (3.4-5.1) mmol/L Chloride (98-107) mmol/L Carbon Dioxide (22-32) mmol/L BUN (7-17) mg/dL Creatinine (0.52-1.04) mg/dL Estimated GFR (>60) mL/min BUN/Creatinine Ratio (6-22) Glucose (70-100) mg/dL Calcium (8.4-10.2) mg/dL Total Bilirubin (0.2-1.3) mg/dL AST (14-36) IU/L ALT (<35) IU/L Alkaline Phosphatase (38-126) U/L Total Creatine Kinase (30-135) U/L CK-MB (CK-2) CK-MB (CK-2) Rel Index Troponin I (0.01-0.034) ng/mL NT-Pro-B Natriuret Pep (<125) pg/mL Total Protein (6.3-8.2) g/dL Albumin (3.5-5.0) g/dL Globulin (1.7-4.1) g/dL Albumin/Globulin Ratio (1.0-2.8) Lipase (23-300) U/L Procalcitonin 0.08 (<0.5) ng/mL SARS-CoV-2 (PCR) Positive H (Negative) 09/11/21 09/11/21 Range/Units 01:55 01:55 WBC (4.5-11.0) X10^3/uL RBC (4.0-5.2) X10^6/uL Hgb (12.0-16.0) g/dL Hct (36-46) % MCV (80-100) fL MCH (26-34) PG MCHC (30-36) % RDW (11.6-14.8) % Plt Count (150-400) X10^3/uL Neut % (Auto) (50-75) % Lymph % (Auto) (25-40) % Beckham % (Auto) (3-14) % Eos % (Auto) (2-4) % Baso % (Auto) (0-2) % Neut # (Auto) (2915-0989) /uL Lymph # (Auto) (9787-2687) /uL Beckham # (Auto) (0-900) /uL Eos # (Auto) (0-450) /uL Baso # (Auto) (0-100) /uL Sodium 131 L (137-145) mmol/L Potassium 3.5 (3.4-5.1) mmol/L Chloride 99 (98-107) mmol/L Carbon Dioxide 26 (22-32) mmol/L BUN 10 (7-17) mg/dL Creatinine 0.66 (0.52-1.04) mg/dL Estimated GFR > 60.0 (>60) mL/min BUN/Creatinine Ratio 15.2 (6-22) Glucose 122 H (70-100) mg/dL Calcium 8.9 (8.4-10.2) mg/dL Total Bilirubin 1.5 H (0.2-1.3) mg/dL AST 29 (14-36) IU/L ALT 23 (<35) IU/L Alkaline Phosphatase 74 (38-126) U/L Total Creatine Kinase 61 (30-135) U/L CK-MB (CK-2) TNP CK-MB (CK-2) Rel Index TNP Troponin I < 0.012 (0.01-0.034) ng/mL NT-Pro-B Natriuret Pep 290 H (<125) pg/mL Total Protein 7.4 (6.3-8.2) g/dL Albumin 4.2 (3.5-5.0) g/dL Globulin 3.2 (1.7-4.1) g/dL Albumin/Globulin Ratio 1.3 (1.0-2.8) Lipase 77 (23-300) U/L Procalcitonin (<0.5) ng/mL SARS-CoV-2 (PCR) (Negative) Imaging Data Chest x-ray: Radiologist's Impression: Under ventilated lungs. No definite consolidation. ECG Data Attestation: I personally reviewed and interpreted this ECG as follows: Interpretation: Sinus tachycardia rate of 123 OR 146 QRS 84 and QTC 466. No acute ST changes. MDM Narrative Medical decision making narrative: This is a 40-year-old vaccinated female with history of asthma and elevated BMI who comes emergency further vomiting and fever and recent COVID exposure. Patient's O2 has been no lower than 93%. They are COVID positive. There tachycardic but states this is not atypical and improved here in the department. Patient has sinus tach on EKG chest x-ray does not show acute changes. Order for monoclonal antibodies was sent. Put for ibuprofen and Tylenol and Zofran for symptoms. Return precautions. We discussed getting a pulse oximeter which they will attempt to obtain to monitor at home. Discharge Plan Departure Patient Disposition: Home Clinical Impression: COVID-19 virus infection Instructions: DI for COVID-19 (Suspected or Confirmed ) Activity Restrictions/Additional Instructions: *You have been diagnosed with COVID infection. If you wish you may obtain a pulse oximeter for use at home to monitor. Please return to the ER if your pulse oximeter shows an O2 saturation less than 94%. You may take Tylenol up to a 1000 mg and/or ibuprofen up to 800 mg every 8 hours. Zofran 1 tablet every 6 hours as needed for nausea. An order form for monoclonal antibodies was faxed to [facility]. I do think he would be a good candidate. They may or may not have availability but should contact you. A copy of the order is included in her discharge paperwork. *What to do: * per recommendations from the CDC and the [facility] [place] [facility] * stay home except to get medical care. Restrict activities outside your home, except for getting medical care. Do not go to work, school, or public areas. Avoid using public transportation, ride sharing, or taxis. * separate yourself from other people in your home. * call ahead before visiting your doctor * Wear a face mask * Cover your coughs and sneezes * Clean your hands often * Avoid sharing household items * Clean all high-touch services every day * Monitor your symptoms and seek prompt medical attention if your illness is worsening, particularly with difficulty in breathing. Discussed continuing home isolation * for individuals with symptoms who are confirmed or suspected cases of COVID-19 and are directed to care for themselves at home, discontinue home isolation under the following conditions: 1. At least 72 hours have passed since recovery, defined as resolution of fever without the use of fever reducing medications, and improvement in respiratory symptoms (cough, shortness of breath) AND, 2. At least 7 days have passed since symptoms 1st appeared Prescriptions: New ondansetron 4 mg tablet,disintegrating 4 mg PO Q6H PRN (Reason: nausea and vomiting) Qty: 10 0RF No Action benzonatate 100 mg capsule 100 mg PO BID PRN (Reason: cough) Qty: 20 0RF IBUPROFEN (#IBUPRIN) 200 mg PO PRN Qty: 0 0RF amitriptyline 25 mg tablet 50 mg PO HS Qty: 180 1RF albuterol sulfate 90 mcg/actuation aerosol powdr breath activated 1 puff INHALATION Q4-6H PRN (Reason: Bronchospasm) 0RF omeprazole 20 mg capsule,delayed release(DR/EC) 20 mg PO DAILY 0RF (DME) ResMed Airsense 10 Auto CPAP Qty: 1 0RF Dose Instruction: As directed Label Comments: Pressure: 5-10 cmH2O DME: [facility] Rx Instructions: As directed Referrals: Lata Menezes DO [Primary Care Provider] -
[2021-09-11 01:58] LABS: COVID19 -Nasal RAPID POSITIVE (Negative)
--- NOTE | 2021-09-11 01:59 | DI.RAD.S_ITS ---
PROCEDURE: XR CHEST 1V INDICATIONS: + covid TECHNIQUE: One view of the chest was acquired. COMPARISON: None. FINDINGS: Surgical changes and devices: None. Lungs and pleura: No consolidation identified. Low lung volumes. No pleural effusions or pneumothorax. Mediastinum: Mediastinal contours appear normal. Heart size is normal. Bones and chest wall: No suspicious bony lesions. Overlying soft tissues appear unremarkable. IMPRESSION: No consolidation identified. Low lung volumes. When clinically feasible consider two-view chest radiograph. This report is concordant with the overnight preliminary interpretation. Dictated by: Trevor Busby M.D. on 09/11/2021 at 7:46 Approved by: Trevor Busby M.D. on 09/11/2021 at 7:47
[2021-09-11] MEDS: SODIUM CHLORIDE 0.9% 1,000 ML 1000 ML IV (02:09)
[2021-09-11] MEDS: ONDANSETRON 4 MG/2 ML INJ IV (02:10)
[2021-09-11] MEDS: KETOROLAC 30 MG/ML VIAL IV (02:10)
[2021-09-11 02:17] LABS: Add Manual Diff / Slide Review NO; Basophils Absolute Auto 0 /uL (0-100); Basophils Percent Auto 0.5 % (0-2); Eosinophils Absolute Auto 0 /uL (0-450); Eosinophils Percent Auto 0.3 % (2-4); Hematocrit 39.5 % (36-46); Hemoglobin 13.7 g/dL (12.0-16.0); Lymphocytes Absolute Auto 200 /uL (1100-4500); Lymphocytes Percent Auto 5.1 % (25-40); Mean Corpuscular HGB Conc 34.7 % (30-36); Mean Corpuscular Hemoglobin 29.4 PG (26-34); Mean Corpuscular Volume 84.7 fL (80-100); Monocytes Absolute Auto 500 /uL (0-900); Monocytes Percent Auto 11.9 % (3-14); Neutrophils Absolute Auto 3800 /uL (1500-7000); Neutrophils Percent Auto 82.2 % (50-75); Platelet Count 247 X10^3/uL (150-400); Red Blood Cell Count 4.66 X10^6/uL (4.0-5.2); Red Cell Distribution Width 14.3 % (11.6-14.8); White Blood Cell Count 4.6 X10^3/uL (4.5-11.0)
[2021-09-11 02:21] VITALS: PULSE 127; O2SAT 95
[2021-09-11 02:24] LABS: Alanine Aminotransferase 23 IU/L (<35); Albumin 4.2 g/dL (3.5-5.0); Albumin Globulin Ratio 1.3 (1.0-2.8); Alkaline Phosphatase 74 U/L (38-126); Aspartate Aminotransferase 29 IU/L (14-36); BUN Creatinine Ratio 15.2 (6-22); Bilirubin Total 1.5 mg/dL (0.2-1.3); Blood Urea Nitrogen 10 mg/dL (7-17); Calcium 8.9 mg/dL (8.4-10.2); Carbon Dioxide 26 mmol/L (22-32); Chloride 99 mmol/L (98-107); Creatine Kinase 61 U/L (30-135); Estimated Glomerular Filt Rate > 60.0 mL/min (>60); Globulin 3.2 g/dL (1.7-4.1); Glucose 122 mg/dL (70-100); HEMOLYSIS < 15 (0-50); Lipase 77 U/L (23-300); Potassium 3.5 mmol/L (3.4-5.1); Sodium 131 mmol/L (137-145); Total Protein 7.4 g/dL (6.3-8.2)
[2021-09-11 02:30] VITALS: PULSE 126; O2SAT 93
[2021-09-11 02:32] LABS: NT-proBNP (BNP-Adult 18+) 290 pg/mL (<125)
[2021-09-11 02:36] LABS: Troponin I < 0.012 ng/mL (0.01-0.034)
[2021-09-11 02:41] LABS: Procalcitonin 0.08 ng/mL (<0.5)
[2021-09-11 03:00] VITALS: PULSE 114; O2SAT 93
[2021-09-11] MEDS: ONDANSETRON 4 MG ODT PREPACK 1 BOTTLE MISC (04:01)
[2021-09-11 04:11] VITALS: BP 131/81; PULSE 108; RESP 20; TEMP 37.2; O2SAT 95
== END 2021-09-11 04:14 | disposition home or self-care (01) ==
PROVIDERS: Emergency Provider Emergency Medicine; PCP Family Medicine
DX: U07.1 COVID-19 (principal); R00.0 Tachycardia, unspecified
CPT/HCPCS: 36415; 71045; 80053; 82550; 83690; 83880; 84145; 84484; 85025; 87635; 93005; 96361; 96374; 96375; 99284; C9803; J1885; J2405

== ENCOUNTER → 2022-06-08 15:49 | Outpatient (CLI) | payer OTHER, SELFPAY ==
[2018-09-29 13:42] VITALS: BMI 32.8
== END ==
PROVIDERS: PCP Family Medicine; Referring Provider Internal Medicine; Visit Provider Internal Medicine
DX: Z23 Encounter for immunization (principal)
CPT/HCPCS: 90471; 90686

== ENCOUNTER → 2022-07-11 10:49 | Outpatient (CLI) | payer OTHER, SELFPAY ==
[2018-09-29 13:42] VITALS: BMI 32.8
--- NOTE | 2022-07-11 11:11 | DI.RAD.S_ITS ---
PROCEDURE: XR CHEST 2V INDICATIONS: Cough TECHNIQUE: 2 views of the chest were acquired. COMPARISON: [facility], CR, XR CHEST 1V, 09/11/2021, 2:11. FINDINGS: Surgical changes and devices: None. Lungs and pleura: Lungs are clear. No pleural effusions or pneumothorax. Mediastinum: Mediastinal contours are normal. Heart size is normal. Bones and chest wall: No suspicious bony abnormalities. Soft tissues appear unremarkable. IMPRESSION: No acute cardiopulmonary disease. Dictated by: Leonard Park M.D. on 07/11/2022 at 12:23 Approved by: Leonard Park M.D. on 07/11/2022 at 12:24
[2022-07-11 11:37] LABS: Influenza A - CEPHEID Flu A NEGATIVE (NEGATIVE); Influenza B - CEPHEID Flu B NEGATIVE (NEGATIVE); Respiratory Syncytial Virus Negative (Negative)
[2022-07-11 11:38] LABS: COVID-19 CEPHEID 4-PLEX PCR POSITIVE (Negative)
== END ==
PROVIDERS: PCP Family Medicine; Referring Provider Nurse Practitioner Family; Visit Provider Nurse Practitioner Family
DX: R05.9 Cough, unspecified (principal)
CPT/HCPCS: 0241U; 71046

== ENCOUNTER → 2022-11-20 12:15 | Outpatient (CLI) | payer OTHER, SELFPAY ==
[2018-09-29 13:42] VITALS: BMI 32.8
[2022-11-20 13:13] LABS: Influenza A - CEPHEID Flu A NEGATIVE (NEGATIVE); Influenza B - CEPHEID Flu B NEGATIVE (NEGATIVE); Respiratory Syncytial Virus Negative (Negative)
[2022-11-20 13:48] LABS: COVID-19 CEPHEID 4-PLEX PCR Negative (Negative)
== END ==
PROVIDERS: PCP Family Medicine; Visit Provider Student in an Organized Health Care Education/Training Program
DX: J02.9 Acute pharyngitis, unspecified (principal); R05.9 Cough, unspecified
CPT/HCPCS: 0241U; 87798

== ENCOUNTER → 2022-11-20 13:02 | Outpatient (CLI) | payer OTHER, SELFPAY ==
[2018-09-29 13:42] VITALS: BMI 32.8
--- NOTE | 2022-11-20 13:04 | DI.RAD.S_ITS ---
PROCEDURE: XR CHEST 2V INDICATIONS: 9 day cough, harsh, SHOB TECHNIQUE: 2 views of the chest were acquired. COMPARISON: [facility], CR, XR CHEST 2V, 07/11/2022, 11:17. FINDINGS: Surgical changes and devices: None. Lungs and pleura: Lungs are clear. No pleural effusions or pneumothorax. Mediastinum: Mediastinal contours are normal. Heart size is normal. Bones and chest wall: No suspicious bony abnormalities. Soft tissues appear unremarkable. IMPRESSION: No acute cardiopulmonary disease process. Dictated by: Terri Ortiz MD, PhD on 11/20/2022 at 13:15 Approved by: Terri Ortiz MD, PhD on 11/20/2022 at 13:15
== END ==
PROVIDERS: PCP Family Medicine; Referring Provider Student in an Organized Health Care Education/Training Program; Visit Provider Student in an Organized Health Care Education/Training Program
DX: R05.9 Cough, unspecified (principal); R07.81 Pleurodynia; J02.9 Acute pharyngitis, unspecified
CPT/HCPCS: 0241U; 71046; 87798

== ENCOUNTER 2023-04-30 19:27 | Emergency (ER) | payer OTHER, SELFPAY ==
[2018-09-29 13:42] VITALS: BMI 32.8
[2023-04-30] VITALS (11 sets, daily range): BP systolic 132–174; BP diastolic 87–106; PULSE 87–105; RESP 17–31; TEMP 37.2; O2SAT 96–99; BMI 35.9
--- NOTE | 2023-04-30 19:52 | ED.ANXIETY ---
HPI - Anxiety General Chief Complaint: Anxiety Stated Complaint: Panic attack ongoing 5h Time Seen by Provider: 04/30/23 19:47 Source: patient Mode of arrival: Ambulatory Limitations: no limitations History of Present Illness HPI narrative: 42-year-old female. Has a history of anxiety and depression. Found out today that she was not going to be able to renew the lease on her house. She states that she has been able to figure out other housing however throughout the day today has been feeling very anxious. She has taken all of her medications. She tried to do calming measures at home that have been unsuccessful. She states she has had panic attacks in the past but they have never lasted this long. She is never been to the emergency department before because of. She states she is feeling like her heart is beating fast. Also feel like that there is ?electricity? going through her body. Related Data Home Medications Medication Instructions Recorded Confirmed IBUPROFEN (#IBUPRIN) 200 mg PO PRN ##0 05/21/11 11/20/22 albuterol sulfate 90 mcg/actuation 1 puff inhalation Q4-6H PRN 04/11/18 11/20/22 breath activated powder inhaler Bronchospasm ResMed Airsense 10 Auto CPAP #1 ea 09/29/18 11/20/22 omeprazole 20 mg capsule,delayed 20 mg PO DAILY 03/24/21 11/20/22 release Previous Rx's Medication Instructions Recorded amitriptyline 25 mg tablet 50 mg PO HS #30 tabs 11/28/12 benzonatate 100 mg capsule 100 mg PO BID PRN cough #20 caps 08/15/21 ondansetron 4 mg disintegrating 4 mg PO Q6H PRN nausea and 09/11/21 tablet vomiting #10 tabs albuterol sulfate 90 mcg/actuation 2 puff inhalation Q6H PRN 07/11/22 aerosol inhaler shortness of breath or wheezing #6.7 grams benzonatate 100 mg capsule 100 mg PO BID PRN cough #20 caps 07/11/22 inhalational spacing device #1 ea 07/11/22 (Aerochamber MV spacer) benzonatate 100 mg capsule 100 mg PO TID PRN cough #30 caps 11/20/22 guaifenesin 100 mg/5 mL oral liquid 200 mg (10 mL) PO Q4H PRN cough 11/20/22 #500 mL Allergies Allergy/AdvReac Type Severity Reaction Status Date / Time hydromorphone [HYDROMORPHONE] Allergy Severe itching Verified 11/20/22 12:10 diphenhydramine AdvReac Intermediate aggitation Verified 11/20/22 12:10 [DIPHENHYDRAMINE] amoxicillin AdvReac Rash Verified 11/20/22 12:10 Review of Systems Constitutional Constitutional: Reports system reviewed and no additional complaints, except as documented Cardiovascular Cardiovascular: Reports system reviewed and no additional complaints, except as documented Neurologic Neurologic: Reports system reviewed and no additional complaints, except as documented Psychiatric Psychiatric: Reports system reviewed and no additional complaints, except as documented Patient History Medical History ADHD Anemia (~1997) Ankle pain (2012) Asthma (2013) Chicken pox (1985) Depression Deviated septum Foot pain (10/2014) Gallstones (~2012) Hayfever History of heavy periods (1993) Hyperlipidemia (2012) Iron deficiency anemia due to chronic blood loss Menorrhagia with irregular cycle Migraines (2011) Obesity (BMI 30-39.9) Obstructive sleep apnea Pancreatitis (2012) Severe ankle sprain (2012) Sleep apnea with use of continuous positive airway pressure (CPAP) Submucous uterine fibroid Submucous uterine fibroid Wears glasses (2012) Surgical History Anesthesia S/P laparoscopic supracervical hysterectomy (09/29/18) Status post biopsy (03/24/14) Status post breast lumpectomy (1996) Family History Grandfather Heart disease Hypertension High cholesterol Lupus Heart attack Grandmother Diabetes mellitus Heart disease Hypertension High cholesterol Stroke COPD (chronic obstructive pulmonary disease) Emphysema of lung Grandfather Age: 102 Skin cancer Diabetes mellitus Heart disease Hypertension High cholesterol Cancer of blood vessel History of heart artery stent Stroke Grandmother Age: 97 Osteoporosis Dementia High cholesterol Heart disease Hypertension Mental health problem Alzheimer's dementia Father Detached retina Partial blindness Forgetfulness Ache in joint Mother Partial deafness Asthma COPD (chronic obstructive pulmonary disease) Ache in joint Sister Foot fracture Wears glasses Social History household members: none Smoking Status: Former smoker alcohol intake: current Smoking Status: Former smoker alcohol intake frequency: a few times a week Substance Use Type: does not use Exam Initial Vital Signs Initial Vital Signs: Vital Signs Temperature 98.9 F 04/30/23 19:34 Pulse Rate 105 H 04/30/23 19:34 Respiratory Rate 19 04/30/23 19:34 Blood Pressure 165/97 H 04/30/23 19:34 Pulse Oximetry 98 04/30/23 19:34 Oxygen Delivery Method Room Air 04/30/23 19:34 HENMT Head: normal to inspection and normocephalic Resp Effort & Inspection: normal respiratory effort Cardio Rate: regular rate Skin General: no rashes or lesions noted Neuro General: patient alert, patient awake, patient oriented x3 and moves all extremities Extrem General: normal to inspection Psych Appearance: grossly normal and well kempt Mood: congruent mood Affect: normal affect Course Orders Ordered: ED Orders 04/30/23 19:40 EKG-12 Lead Stat Discontinued Medications Lorazepam (Lorazepam 0.5 Mg Tablet) 1 mg PO NOW ONE Stop: 04/30/23 19:53 Last Admin: 04/30/23 19:58 Dose: 1 mg Documented By: KWAME Ondansetron HCl (Ondansetron 4 Mg Odt) 4 mg SL NOW ONE Stop: 04/30/23 22:24 Last Admin: 04/30/23 22:27 Dose: 4 mg Documented By: TEZ Ondansetron HCl (Ondansetron 4 Mg Odt Prepack) 1 bottle MISC SEEINSTR ONE Stop: 04/30/23 23:01 Vital Signs Vital signs: Vital Signs - 8 hr 04/30/23 19:34 04/30/23 19:49 04/30/23 19:50 Temperature 98.9 F Pulse Rate 105 H 105 H 101 H Respiratory Rate 19 17 Blood Pressure 165/97 H Pulse Oximetry 98 98 99 Oxygen Delivery Method Room Air 04/30/23 19:50 04/30/23 20:00 04/30/23 20:00 Temperature Pulse Rate 99 H Respiratory Rate Blood Pressure 174/104 H 167/91 H Pulse Oximetry 97 Oxygen Delivery Method 04/30/23 20:30 04/30/23 20:30 04/30/23 21:00 Temperature Pulse Rate 93 H Respiratory Rate 18 Blood Pressure 153/100 H 161/100 H Pulse Oximetry 96 Oxygen Delivery Method 04/30/23 21:00 04/30/23 21:30 04/30/23 21:30 Temperature Pulse Rate 90 95 H Respiratory Rate 29 H 23 Blood Pressure 132/87 Pulse Oximetry 97 96 Oxygen Delivery Method 04/30/23 22:00 04/30/23 22:00 04/30/23 22:30 Temperature Pulse Rate 103 H Respiratory Rate 26 H Blood Pressure 143/103 H 151/93 H Pulse Oximetry 98 Oxygen Delivery Method 04/30/23 22:30 Temperature Pulse Rate 105 H Respiratory Rate 22 Blood Pressure Pulse Oximetry 96 Oxygen Delivery Method MDM - Anxiety ECG Data Attestation: I personally reviewed and interpreted this ECG as follows: Interpretation: Sinus rhythm Ventricular rate 99 Normal axis Normal QRS Normal QTC No ST T wave changes MDM Narrative Medical decision making narrative: Patient states that after the Ativan an observation she is feeling much better. She did have an episode of nausea and vomiting but this is most likely because of the Ativan. Apparently this has happened to her in the past after taking Ativan. Patient states she is feeling well enough to go home. Discharge Plan Departure Patient Disposition: Home Clinical Impression: Anxiety Instructions: DI for Anxiety -- Adult Activity Restrictions/Additional Instructions: Recommend that you take all of your medications as directed. Contact your primary doctor for follow-up. Return to the emergency department for new symptoms. Prescriptions: No Action benzonatate 100 mg capsule 100 mg PO BID PRN (Reason: cough) Qty: 20 0RF albuterol sulfate 90 mcg/actuation HFA aerosol inhaler 2 puff inhalation Q6H PRN (Reason: shortness of breath or wheezing) Qty: 6.7 0RF (DME) Aerochamber MV Spacer See Rx Instructions .ROUTE .MEDSUPPLY Qty: 1 0RF Rx Instructions: As directed benzonatate 100 mg capsule 100 mg PO BID PRN (Reason: cough) Qty: 20 0RF benzonatate 100 mg capsule 100 mg PO TID PRN (Reason: cough) Qty: 30 1RF guaifenesin 100 mg/5 mL liquid 200 mg PO Q4H PRN (Reason: cough) Qty: 500 0RF IBUPROFEN (#IBUPRIN) 200 mg PO PRN Qty: 0 amitriptyline 25 mg tablet 50 mg PO HS Qty: 30 1RF albuterol sulfate 90 mcg/actuation aerosol powdr breath activated 1 puff INHALATION Q4-6H PRN (Reason: Bronchospasm) omeprazole 20 mg capsule,delayed release(DR/EC) 20 mg PO DAILY ondansetron 4 mg tablet,disintegrating 4 mg PO Q6H PRN (Reason: nausea and vomiting) Qty: 10 0RF (DME) ResMed Airsense 10 Auto CPAP Qty: 1 Dose Instruction: As directed Patient Comments: Pressure: 5-10 cmH2O DME: [facility] Rx Instructions: As directed Referrals: Lata Menezes DO [Primary Care Provider] - Stand Alone Forms: Patient Portal/API
[2023-04-30] MEDS: LORazepam 0.5 MG TABLET 1 MG PO (19:58)
[2023-04-30] MEDS: ONDANSETRON 4 MG ODT SL (22:27)
[2023-04-30] MEDS: ONDANSETRON 4 MG ODT PREPACK 1 BOTTLE MISC (23:17)
== END 2023-04-30 23:23 | disposition home or self-care (01) ==
PROVIDERS: Emergency Provider Emergency Medicine; PCP Family Medicine
DX: F41.9 Anxiety disorder, unspecified (principal)
CPT/HCPCS: 93005; 99283

== ENCOUNTER → 2023-07-17 14:52 | Outpatient (CLI) | payer OTHER, SELFPAY ==
[2018-09-29 13:42] VITALS: BMI 32.8
== END ==
PROVIDERS: PCP Family Medicine; Referring Provider Family Medicine; Visit Provider Family Medicine
DX: Z23 Encounter for immunization (principal)
CPT/HCPCS: 90471; 90686

== ENCOUNTER → 2023-12-28 17:40 | Outpatient (CLI) | payer OTHER, SELFPAY ==
[2018-09-29 13:42] VITALS: BMI 32.8
[2023-12-28 18:19] LABS: Basophils Absolute Auto 100 /uL (0-100); Basophils Percent Auto 1.1 % (0-2); Eosinophils Absolute Auto 200 /uL (0-450); Eosinophils Percent Auto 2.7 % (2-4); Hematocrit 42.1 % (36-46); Hemoglobin 14.6 g/dL (12.0-16.0); Lymphocytes Absolute Auto 1800 /uL (1100-4500); Lymphocytes Percent Auto 23.7 % (25-40); Mean Corpuscular HGB Conc 34.7 % (30-36); Mean Corpuscular Volume 83.5 fL (80-100); Monocytes Absolute Auto 500 /uL (0-900); Monocytes Percent Auto 6.2 % (3-14); Neutrophils Absolute Auto 4900 /uL (1500-7000); Neutrophils Percent Auto 66.3 % (50-75); Platelet Count 285 X10^3/uL (150-400); Red Blood Cell Count 5.04 X10^6/uL (4.0-5.2); Red Cell Distribution Width 14.2 % (11.6-14.8); White Blood Cell Count 7.5 X10^3/uL (4.5-11.0)
[2023-12-28 18:47] LABS: Alanine Aminotransferase 18 IU/L (<35); Albumin 4.3 g/dL (3.5-5.0); Albumin Globulin Ratio 1.9 (1.0-2.8); Alkaline Phosphatase 85 U/L (38-126); Aspartate Aminotransferase 22 IU/L (14-36); BUN Creatinine Ratio 28.1 (6-22); Blood Urea Nitrogen 18 mg/dL (7-17); Calcium 9.1 mg/dL (8.4-10.2); Carbon Dioxide 28 mmol/L (22-32); Chloride 105 mmol/L (98-107); Estimated Glomerular Filt Rate > 60 mL/min (>60); Globulin 2.3 g/dL (1.7-4.1); Glucose 89 mg/dL (70-100); HEMOLYSIS < 15 (0-50); Potassium 4.2 mmol/L (3.4-5.1); Sodium 137 mmol/L (137-145); Total Protein 6.6 g/dL (6.3-8.2)
[2023-12-28 19:01] LABS: Add Manual Diff / Slide Review SLIDE REVIEW; RBC Morphology Normal Morphology
[2023-12-28 19:04] LABS: Vitamin D 25 Hydroxy (D3) 24.5 ng/mL (30.0-100.0)
[2023-12-28 19:35] LABS: Vitamin B12 353 pg/mL (239-931)
[2024-01-01 00:26] LABS: Folate, RBC 1080 ng/mL (>498); Hematocrit 42.3 % (34.0-46.6)
== END ==
LOC: LAB 17:43
PROVIDERS: PCP Family Medicine
DX: F32.A Depression, unspecified (principal)
CPT/HCPCS: 36415; 80053; 82306; 82607; 82747; 84443; 85014; 85025

== ENCOUNTER → 2024-06-27 08:00 | Outpatient (CLI) | payer OTHER, SELFPAY ==
[2018-09-29 13:42] VITALS: BMI 32.8
[2024-06-27 08:51] LABS: Add Manual Diff / Slide Review NO; Basophils Absolute Auto 100 /uL (0-100); Basophils Percent Auto 0.8 % (0-2); Eosinophils Absolute Auto 200 /uL (0-450); Eosinophils Percent Auto 2.3 % (2-4); Hematocrit 42.1 % (36-46); Hemoglobin 14.7 g/dL (12.0-16.0); Lymphocytes Absolute Auto 1900 /uL (1100-4500); Lymphocytes Percent Auto 25.7 % (25-40); Mean Corpuscular HGB Conc 34.9 % (30-36); Mean Corpuscular Hemoglobin 29.5 PG (26-34); Mean Corpuscular Volume 84.4 fL (80-100); Monocytes Absolute Auto 400 /uL (0-900); Monocytes Percent Auto 5.6 % (3-14); Neutrophils Absolute Auto 4700 /uL (1500-7000); Neutrophils Percent Auto 65.6 % (50-75); Platelet Count 291 X10^3/uL (150-400); Red Blood Cell Count 4.98 X10^6/uL (4.0-5.2); Red Cell Distribution Width 14.3 % (11.6-14.8); White Blood Cell Count 7.2 X10^3/uL (4.5-11.0)
[2024-06-27 09:15] LABS: Erythrocyte Sedimentation Rate 20 MM/HR (0-20)
[2024-06-27 09:46] LABS: HEMOLYSIS < 15 (0-50); Iron 106 ug/dL (37-170)
[2024-06-27 09:48] LABS: Alanine Aminotransferase 20 IU/L (<35); Albumin 3.8 g/dL (3.5-5.0); Albumin Globulin Ratio 1.5 (1.0-2.8); Alkaline Phosphatase 89 U/L (38-126); Aspartate Aminotransferase 26 IU/L (14-36); BUN Creatinine Ratio 31.9 (6-22); Bilirubin Total 0.8 mg/dL (0.2-1.3); Blood Urea Nitrogen 23 mg/dL (7-17); Calcium 9.3 mg/dL (8.4-10.2); Carbon Dioxide 30 mmol/L (22-32); Chloride 101 mmol/L (98-107); Cholesterol 171 mg/dL (140-199); Estimated Glomerular Filt Rate > 60 mL/min (>60); Globulin 2.5 g/dL (1.7-4.1); Glucose 93 mg/dL (70-100); HDL Cholesterol 43 mg/dL (40-60); HEMOLYSIS < 15 (0-50); LDL Cholesterol Calculated 110 mg/dL (<100); Potassium 4.3 mmol/L (3.4-5.1); Sodium 135 mmol/L (137-145); Total Protein 6.3 g/dL (6.3-8.2); Triglycerides 92 mg/dL (35-150)
[2024-06-27 09:57] LABS: Percent Iron Saturation 33 % (15-50); Total Iron Binding Capacity 323 ug/dL (265-497); Transferrin 246 mg/dL (206-381)
[2024-06-27 10:04] LABS: Vitamin D 25 Hydroxy (D3) 41.1 ng/mL (30.0-100.0)
[2024-06-27 10:19] LABS: TSH w/ Reflex to FT4 2.15 uIU/mL (0.47-4.68)
[2024-06-27 10:24] LABS: Ferritin 26 ng/mL (6-137)
== END ==
PROVIDERS: PCP Family Medicine; Referring Provider Family Medicine; Visit Provider Family Medicine
DX: Z13.6 Encounter for screening for cardiovascular disorders (principal); E61.1 Iron deficiency; E55.9 Vitamin D deficiency, unspecified; F32.9 Major depressive disorder, single episode, unspecified; E66.9 Obesity, unspecified; R19.7 Diarrhea, unspecified
CPT/HCPCS: 36415; 80053; 80061; 82306; 82728; 82784; 83516; 83540; 83550; 84443; 85025; 85651

== ENCOUNTER → 2024-08-12 17:23 | Outpatient (CLI) | payer OTHER, SELFPAY ==
[2018-09-29 13:42] VITALS: BMI 32.8
== END ==
LOC: FLU 08-18 17:23
PROVIDERS: PCP Family Medicine; Referring Provider Internal Medicine; Visit Provider Internal Medicine
DX: Z23 Encounter for immunization (principal)
CPT/HCPCS: 90471; 90656